=== PATIENT | male | born 1965 | race Caucasian/White ===

== ENCOUNTER 2018-07-20 00:48 | Inpatient (IN) | payer BC ==
[2018-07-20] MEDS ORDERED: NS 0.9% 1000 ML* 1,000 ML IV ONE (00:49)
--- NOTE | 2018-07-20 00:58 | HP ---
H&P (Free Text) History and Physical: PCP: Marielos Baires NP Date/Time: 07/20/2018 005 CC: dizziness, slurred speech, R facial droop HPI: Mr Salcedo is a 53YO male HX HTN who was at work when he experienced the sudden onset of dizziness associated with slurred speech and R facial droop at 2200. 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 He denies headache, change in vision, upper or lower extremity W/N/T, difficulty swallowing, chest pain, SOB, N/V/D, F/C, sweats, or other issues. He denies HX of similar. PMedHx HTN Ambulatory Orders Nursing to reconcile. Cephalexin CAP* [Keflex 500 CAP*] 04/15/13 Ibuprofen TAB* [Advil TAB*] 04/15/13 Allergies No Known Allergies Allergy (Verified 04/15/13 12:33) PSurgHx "twisted large intestine" requiring small segment colectomy L inguinal hernia repair SocHx: 1PPD cigarettes with ~30PYHX, <1 alcoholic drink weekly, no recreational drugs; works in the [employer]; lives with his long- term girlfriend, 1 step-daughter; full code status FamHx: Mother passed at 67 2nd COPD. Father passed in his 60s 2nd colon CA w/ a HX CAD onset in his 50s. Sister has had a CABG. One of his 3 brothers has HLD. ROS: as above, otherwise reviewed and all were negative vitals: Vital Signs Temp 37.2 C 07/20/18 01:04 Pulse 92 07/20/18 01:04 Resp 20 07/20/18 01:04 BP 158/109 07/20/18 01:04 Pulse Ox 95 07/20/18 01:04 Intake & Output 07/19/18 07/19/18 07/20/18 11:59 23:59 11:59 Weight 63.503 kg Constitutional: NAD, normally developed, thin white male HEENM: atraumatic; sclera/conjunctiva: anicteric/clear; hearing: clinically intact; oropharynx: clear, mucosa tacky Neck: soft tissue: non-tender, no nuchal rigidity; thyroid: normal Pulmonary: mildly diminished bilaterally, fair to good aeration, no accessory muscle use CV: RR/RR, normal S1S2, no carotid bruit, no jugular venous distention, 1+ B DP/ PT, no edema Abdominal: soft, non-distended, non-tender, no rebound/guarding/rigidity, normoactive bowel sounds, no hepatosplenomegaly or masses, no costovertebral angle tenderness Musculoskeletal: general: grossly intact, non-tender Integumental: normal appearance and texture of exposed skin Neurological cranial nerves II: intact visual quadrants x8 III/IV/: intact light reflex, EOMI/PERRLA, intact convergence & accommodation V: intact corneal reflex, intact facial sensation, intact mastication VII: mild R facial droop, intact eye clench VIII: hearing clinically intact IX/X: symmetric palatal motion, no dysarthria XII: midline tongue protrusion, thick tongued vocal articulation motor: R-handed LUE: 4+/5 proximally, distally, & 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 strength RUE: 4+/5 proximally, distally, & 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 strength LLE: 4+/5 proximally & distally RLE: 4+/5 proximally & distally coordination finger/nose: symmetric, mildly slowed heal/person: intact, symmetric dysdiadochokinesia: globally slowed, symmetric sensory crude touch: intact globally DTRs biceps: 1+ B triceps: 1+ B brachioradialis: 2+ B patellar: 2+ brisk R, 1+ L Achilles: 1+ B Babinski: downgoing B Psychiatric orientation: AA&O to PPS affect: calm mood: cooperative eye contact: fair content: reliable responses: timely insight: fair to good Testing: Lab Results 07/20/18 07/20/18 07/20/18 Range/Units 01:17 01:17 01:17 WBC 11.3 H (3.5-10.8) 10^3/ul RBC 4.55 (4.00-5.40) 10^6/ul Hgb 14.2 (14.0-18.0) g/dl Hct 43 (42-52) % MCV 94 (80-94) fL MCH 31 (27-31) pg MCHC 33 (31-36) g/dl RDW 14 (10.5-15) % Plt Count 266 (150-450) 10^3/ul MPV 8.5 (7.4-10.4) um3 Neut % (Auto) 81.4 (38-83) % Lymph % (Auto) 12.8 L (25-47) % [facility] % (Auto) 4.4 (0-7) % Eos % (Auto) 0.7 (0-6) % Baso % (Auto) 0.7 (0-2) % Absolute Neuts (auto) 9.2 H (1.5-7.7) 10^3/ul Absolute Lymphs (auto) 1.4 (1.0-4.8) 10^3/ul Absolute Monos (auto) 0.5 (0-0.8) 10^3/ul Absolute Eos (auto) 0.1 (0-0.6) 10^3/ul Absolute Basos (auto) 0.1 (0-0.2) 10^3/ul Absolute Nucleated RBC 0 10^3/ul Nucleated RBC % 0 INR (Anticoag Therapy) 0.94 (0.77-1.02) APTT 31.1 (26.0-36.3) seconds Sodium 134 L (135-145) mmol/L Potassium 4.2 (3.5-5.0) mmol/L Chloride 100 L (101-111) mmol/L Carbon Dioxide 27 (22-32) mmol/L Anion Gap 7 (2-11) mmol/L BUN 26 H (6-24) mg/dL Creatinine 0.83 (0.67-1.17) mg/dL Est GFR ( Amer) 116.8 (>60) Est GFR (Non-Af Amer) 96.5 (>60) BUN/Creatinine Ratio 31.3 H (8-20) Glucose 116 H (70-100) mg/dL Lactic Acid (0.5-2.0) mmol/L Calcium 9.5 (8.6-10.3) mg/dL Total Bilirubin 0.30 (0.2-1.0) mg/dL AST 14 (13-39) U/L ALT 13 (7-52) U/L Alkaline Phosphatase 80 (34-104) U/L Troponin I 0.00 (<0.04) ng/mL Total Protein 7.1 (6.4-8.9) g/dL Albumin 4.2 (3.2-5.2) g/dL Globulin 2.9 (2-4) g/dL Albumin/Globulin Ratio 1.4 (1-3) Triglycerides 117 mg/dL Cholesterol 168 mg/dL LDL Cholesterol 90 mg/dL HDL Cholesterol 54.7 mg/dL 07/20/18 Range/Units 01:17 WBC (3.5-10.8) 10^3/ul RBC (4.00-5.40) 10^6/ul Hgb (14.0-18.0) g/dl Hct (42-52) % MCV (80-94) fL MCH (27-31) pg MCHC (31-36) g/dl RDW (10.5-15) % Plt Count (150-450) 10^3/ul MPV (7.4-10.4) um3 Neut % (Auto) (38-83) % Lymph % (Auto) (25-47) % [facility] % (Auto) (0-7) % Eos % (Auto) (0-6) % Baso % (Auto) (0-2) % Absolute Neuts (auto) (1.5-7.7) 10^3/ul Absolute Lymphs (auto) (1.0-4.8) 10^3/ul Absolute Monos (auto) (0-0.8) 10^3/ul Absolute Eos (auto) (0-0.6) 10^3/ul Absolute Basos (auto) (0-0.2) 10^3/ul Absolute Nucleated RBC 10^3/ul Nucleated RBC % INR (Anticoag Therapy) (0.77-1.02) APTT (26.0-36.3) seconds Sodium (135-145) mmol/L Potassium (3.5-5.0) mmol/L Chloride (101-111) mmol/L Carbon Dioxide (22-32) mmol/L Anion Gap (2-11) mmol/L BUN (6-24) mg/dL Creatinine (0.67-1.17) mg/dL Est GFR ( Amer) (>60) Est GFR (Non-Af Amer) (>60) BUN/Creatinine Ratio (8-20) Glucose (70-100) mg/dL Lactic Acid 0.5 (0.5-2.0) mmol/L Calcium (8.6-10.3) mg/dL Total Bilirubin (0.2-1.0) mg/dL AST (13-39) U/L ALT (7-52) U/L Alkaline Phosphatase (34-104) U/L Troponin I (<0.04) ng/mL Total Protein (6.4-8.9) g/dL Albumin (3.2-5.2) g/dL Globulin (2-4) g/dL Albumin/Globulin Ratio (1-3) Triglycerides mg/dL Cholesterol mg/dL LDL Cholesterol mg/dL HDL Cholesterol mg/dL ECG, personally reviewed: NSR rate 89, no ischemia CXR, personally reviewed: no acute process CT brain WO, personally reviewed: IMPRESSION: No acute intracranial abnormality. Impression: 53YO male HX HTN presenting with light-headedness, slurred speech, & R facial droop concerning for CVA DIAGNOSIS & PLAN Primary L cortical CVA : aspirin : telemetry : neurochecks : supplemental oxygen : MRI brain WO in AM : carotid US in AM : telestroke recommended admission to [facility] for further work up : neurology consult in AM : NPO until swallowing eval passed : supportive care Secondary HTN : permissive HTN limited to systolic 180, PRN hydralazine Admission Rational: observation for CVA/TIA work up DVTp: SCDs Code Status: full HCP: female friend, Melanie Grier Critical Care time: 70minutes with >50% spent at the bedside obtaining a history , performing the examination, advising of diagnosis & treatment options along with risks/benefits/reasoning; remainder spent discussing with ER MD, reviewing labs and radiology exams, performing documentation
--- NOTE | 2018-07-20 01:00 | ED ---
Neurological HPI - HPI Summary HPI Summary: A 53 y/o M JAI presents to ED with c/o R-sided facial droop and slurred speech onset 2299. Pt was at work when he began to feel dizzy and lightheaded. He noticed his speech was also slurred. Per EMS, pt also has R-sided facial droop. Pt states he felt fine earlier today at 2000. ED provider evaluated patient immediately upon arrival at charge desk. - History of Current Complaint Stated Complaint: CODE RODRIGUEZ Hx Obtained From: Patient, EMS Onset/Duration: Sudden Onset, Started hours ago - 2299, Still Present Timing: Constant Onset Severity: Moderate Current Severity: Moderate Character: Lightheaded, Dizzy, Paralysis - R-sided face, Impaired Speech Associated Signs and Symptoms: Positive: Dizziness, Impaired Speech, Lightheadness. Negative: Headache - Allergy/Home Medications Allergies/Adverse Reactions: Allergies Allergy/AdvReac Type Severity Reaction Status Date / Time No Known Allergies Allergy Verified 04/15/13 12:33 PMH/Surg Hx/FS Hx/Imm Hx Previously Healthy: No Cardiovascular History: Reports: Hx Hypertension GI History: Reports: Hx Hiatal Hernia Opthamlomology History: Denies: Hx Legally Blind EENT History: Denies: Hx Deafness - Surgical History Surgery Procedure, Year, and Place: HERNIA SURGERY - Family History Known Family History: Positive: Cardiac Disease Family History: CA, COPD - Social History Occupation: Employed Full-time Lives: Alone Substance Use Type: Reports: None Hx Tobacco Use: Yes Review of Systems Neurological: Other - pos: R-sided facial droop, dizziness, lightheadedness Positive: Slurred Speech. Negative: Headache All Other Systems Reviewed And Are Negative: Yes Physical Exam - Summary Physical Exam Summary: Appearance: Well-appearing, Well-nourished, lying in bed comfortably Skin: Warm, dry, no obvious rash Eyes: sclera anicteric, no conjunctival pallor ENT: mucous membranes moist, pharynx appears normal Neck: Supple, nontender Respiratory: Clear to auscultation, no signs of respiratory distress Cardiovascular: Normal S1, S2. No murmurs. Normal distal pulses in tibial and radial bilaterally. Abdomen: Soft, nontender, normal active bowel sounds present Musculoskeletal: Normal, Strength/ROM Intact Neurological: A&Ox3, awake and alert. NIH stroke scale 3 due to R-sided facial droop and mild dysarthria. Psychiatric: affect is normal, does not appear anxious or depressed Triage Information Reviewed: Yes Vital Signs Reviewed: Yes - [place] Coma Scale Best Eye Response: 4 - Spontaneous Best Motor Response: 6 - Obeys Commands Best Verbal Response: 5 - Oriented Coma Scale Total: 15 Diagnostics - Laboratory Result Diagrams: 07/20/18 01:17 07/20/18 01:17 Lab Statement: Any lab studies that have been ordered have been reviewed, and results considered in the medical decision making process. - Radiology CXR Xray Interpretation: No Acute Changes Radiology Interpretation Completed By: ED Physician - CT BRAIN CT Interpretation: No Acute Changes - IMPRESSION: No acute intracranial abnormality. ED provider has reviewed this report. CT Interpretation Completed By: Radiologist - EKG 0103 Cardiac Rate: NL - 89 bpm EKG Rhythm: Sinus Rhythm NIH Scale - NIH Scale Level of Consciousness: Alert/Keenly Responsive Ask Patient the Month and His/Her Age: Both Correct Ask Pt to Open/Close Eyes and Developmental Education Instructor/Release Non-Paretic Hand: Both Correctly Best Gaze (Only Horizontal Eye Movement): Normal Visual Field Testing: No Visual Loss Facial Paresis-Pt to Smile & Close Eyes or Grimace Symmetry: Partial Paralysis Motor Function - Right Arm: No Drift-Holds 10 Seconds Motor Function - Left Arm: No Drift-Holds 10 Seconds Motor Function - Right Leg: No Drift-Holds 10 Seconds Motor Function - Left Leg: No Drift-Holds 10 Seconds Limb Ataxia-Must be out of Proportion to Weakness Present: Absent Sensory (Use Pinprick to Test Arms/Legs/Trunk/Face): Normal Best Language (Describe Picture, Name Items): No Aphasia Dysarthria (Read Several Words): Slurs Some Words Extinction and Inattention: No Abnormality Total Score: 3 Course/Dx - Course Course Of Treatment: Ptis a 53 y/o M BIBA for possible stroke onset 2299. Pt presents with R-sided facial droop, dysarthria. Denies MCINTOSH. Brain CT is unremarkable. Pt is improved upon re-eval. Given very low stroke score and improving symptoms, it was felt that TPA and certainly consideration for mechanical reperfusion were not indicated. This opinion was shared by the consulting neurologist. Consulted with Dr. Marinelli, telestroke, who recommends admission to [facility], does not recommend TPA. Discussed case with Dr. Chaudhari, hospitalist, who will admit pt. Critical care time: 25 minutes. - Diagnoses Provider Diagnoses: CVA (cerebral vascular accident) During the Visit The Following Alert/Code Occurred: Code Kaur - 0041 - Physician Notifications Discussed Care Of Patient With: Shan Lopez - neuro Time Discussed With Above Provider: 02:01 Instructed by Provider To: Other - Recommends calling [facility] and consulting their neuro Discharge - Sign-Out/Discharge Documenting (check all that apply): Patient Departure - ADM - Discharge Plan Condition: Stable Disposition: ADMITTED TO [facility] - Billing Disposition and Condition Condition: STABLE Disposition: Admitted to [facility] - Attestation Statements Document Initiated by Scribe: Yes Documenting Scribe: Lianna Acharya Provider For Whom Scribe is Documenting (Include Credential): Dr. Jd Flood MD Scribe Attestation: Lianna Mcneill, scribed for Dr. Jd Flood MD on 07/20/18 at 0640. Scribe Documentation Reviewed: Yes Provider Attestation: The documentation as recorded by the scribe, Lianna Acharya accurately reflects the service I personally performed and the decisions made by me, Dr. Jd Flood MD Consult Consult: 0222: Consult with Dr. Marinelli Weston telestroke Recommends admission here, no TPA. 0224: Consult with Dr. Chaudhari, hospitalist Will admit pt.
--- NOTE | 2018-07-20 01:06 | RAD ---
EXAM: CT Head Without Intravenous Contrast EXAM DATE/TIME: 07/20/2018 12:56 AM CLINICAL HISTORY: 53 years old, male; Signs and symptoms; Speech disturbance; Slurred speech; Additional info: Neurological changes/code carroll TECHNIQUE: Axial computed tomography images of the head/brain without intravenous contrast. All CT scans at this facility use at least one of these dose optimization techniques: automated exposure control; mA and/or kV adjustment per patient size (includes targeted exams where dose is matched to clinical indication); or iterative reconstruction. COMPARISON: No relevant prior studies available. FINDINGS: Brain: Unremarkable. No hemorrhage. No significant white matter disease. No edema. Ventricles: Unremarkable. No ventriculomegaly. Bones/joints: Unremarkable. No acute fracture. Soft tissues: Unremarkable. Sinuses: Unremarkable as visualized. No acute sinusitis. Mastoid air cells: Unremarkable as visualized. No mastoid effusion. IMPRESSION: No acute intracranial abnormality.
[2018-07-20 01:29] LABS: ABS Basophils 0.1 10^3/ul (0-0.2); ABS Eosinophils 0.1 10^3/ul (0-0.6); ABS Lymphocytes 1.4 10^3/ul (1.0-4.8); ABS Monocytes 0.5 10^3/ul (0-0.8); ABS Neutrophils 9.2 10^3/ul (1.5-7.7); ABS Nucleated RBC 0 10^3/ul; Eosinophil % 0.7 % (0-6); Hematocrit 43 % (42-52); Hemoglobin 14.2 g/dl (14.0-18.0); Lymphocyte % 12.8 % (25-47); Mean Corpuscular HGB Conc 33 g/dl (31-36); Mean Corpuscular Hemoglobin 31 pg (27-31); Mean Corpuscular Volume 94 fL (80-94); Mean Platelet Volume 8.5 um3 (7.4-10.4); Nucleated Red Blood Cells % 0; Platelet Count 266 10^3/ul (150-450); Red Blood Count 4.55 10^6/ul (4.00-5.40); Red Cell Distribution Width 14 % (10.5-15); White Blood Count 11.3 10^3/ul (3.5-10.8)
[2018-07-20 01:46] LABS: EGFR Non-African American 96.5 (>60)
[2018-07-20] MEDS ORDERED: Acetaminophen TAB* 325 MG PO PRN (01:56)
[2018-07-20 02:14] LABS: INR 0.94 (0.77-1.02)
[2018-07-20] MEDS ORDERED: Melatonin 3 MG TAB PO PRN (02:26)
[2018-07-20] MEDS ORDERED: hydrALAZINE IV* 20 MG/ML VIAL IV PRN (02:26)
[2018-07-20] MEDS ORDERED: Aspirin 81 mg CHEW TAB* 81 MG TAB.CHEW PO ONE (02:26)
[2018-07-20] MEDS ORDERED: Ondansetron ODT TAB* 4 MG PO PRN (02:26)
[2018-07-20] MEDS: NS 0.9% 1000 ML* 1,000 ML IV SCH ×2 (04:33→19:11)
[2018-07-20] MEDS ORDERED: Omeprazole CAP* 20 MG PO SCH (06:00)
--- NOTE | 2018-07-20 08:11 | RAD ---
Indication: Code carroll, neurologic changes. Single frontal view of the chest performed at 0110 hours was reviewed. No prior study is available. No mediastinal shift is noted. Heart is of normal size and configuration. Lung scott appear clear. Lung scott appear hyperinflated. IMPRESSION: NO ACTIVE CARDIOPULMONARY DISEASE IS NOTED. R0
[2018-07-20] MEDS: Docusate CAP* 100 MG PO SCH ×2 (08:18→19:23)
--- NOTE | 2018-07-20 09:22 | RAD ---
INDICATION: TIA CVA workup. COMPARISON: No relevant prior exams available on the [facility] PACS for comparison. TECHNIQUE: Bilateral carotid duplex scan. Stenosis estimations reflect velocity criteria that have been correlated to angiographic stenosis calculations based on distal internal carotid diameter. REPORT: RIGHT ICA: 39 cm/s peak systolic 15 cm/s end diastolic CCA: 53 cm/s peak systolic ICA/CCA peak systolic ratio: 0.73 The right common carotid artery and internal carotid artery are without evidence for significant atherosclerotic disease. Normal spectral wave forms are present throughout. Antegrade flow in the right vertebral artery. LEFT ICA: 48 cm/s peak systolic 20 cm/s end diastolic CCA: 68 cm/s peak systolic ICA/CCA peak systolic ratio: 0.70 The left common carotid artery and internal carotid artery are without evidence for significant atherosclerotic disease. Normal spectral wave forms are present throughout. Antegrade flow in the left vertebral artery. IMPRESSION: #. No sonographic evidence for hemodynamic significant carotid stenosis. CPT II Codes: 3100F
[2018-07-20] MEDS ORDERED: Mouth Piece, Nicotine* 1 EACH CARTRIDGE INH PRN (09:53)
[2018-07-20] MEDS ORDERED: Nicotine Inhaler* 10 MG AMP INH PRN (09:53)
--- NOTE | 2018-07-20 09:59 | PN ---
Subjective Date of Service: 07/20/18 Interval History: No N/V, LH, headache, SOB, CP Tearful when discussing potential CVA No events on tele Objective Active Medications: Acetaminophen (Tylenol Tab*) 650 mg PO Q6H PRN PRN Reason: FEVER/PAIN Aspirin (Aspirin Ec Tab*) 162 mg PO DAILY [facility] Atorvastatin Calcium (Lipitor*) 40 mg PO 1700 [facility] Device (Nicotine Mouth Piece*) 1 each INH .USE WITH NICOTROL PRN PRN Reason: CRAVING Docusate Sodium (Colace Cap*) 200 mg PO BID [facility] Last Admin: 07/20/18 08:18 Dose: Not Given Hydralazine HCl (Apresoline Iv*) 10 mg IV Q4H PRN PRN Reason: Systolic >180 Sodium Chloride (Ns 0.9% 1000 Ml*) 1,000 mls @ 75 mls/hr IV PER RATE [facility] Last Admin: 07/20/18 04:33 Dose: 75 mls/hr Melatonin (Melatonin) 3 mg PO BEDTIME PRN; Protocol PRN Reason: Sleep Nicotine (Nicotine Inhaler*) 10 mg INH Q2H PRN PRN Reason: CRAVING Omeprazole (Prilosec Cap*) 20 mg PO DAILY@0600 [facility] Last Admin: 07/20/18 05:34 Dose: 20 mg Ondansetron HCl (Zofran Odt Tab*) 4 mg PO Q6H PRN PRN Reason: n/v Vital Signs - 8 hr 07/20/18 07/20/18 07/20/18 02:00 02:06 02:36 Temperature Pulse Rate 81 83 73 Respiratory 19 20 14 Rate Blood Pressure 172/110 151/95 (mmHg) O2 Sat by Pulse 93 94 93 Oximetry 07/20/18 07/20/18 07/20/18 03:00 03:06 03:36 Temperature Pulse Rate 77 79 80 Respiratory 21 22 18 Rate Blood Pressure 158/94 113/79 (mmHg) O2 Sat by Pulse 93 93 92 Oximetry 07/20/18 07/20/18 07/20/18 03:40 03:59 07:41 Temperature 97.6 F 98.5 F 97.6 F Pulse Rate 71 76 63 Respiratory 16 15 Rate Blood Pressure 145/98 151/95 151/96 (mmHg) O2 Sat by Pulse 98 95 97 Oximetry 07/20/18 08:00 Temperature Pulse Rate Respiratory Rate Blood Pressure (mmHg) O2 Sat by Pulse 97 Oximetry Oxygen Devices in Use Now: None Appearance: thin, NAD Eyes: No Scleral Icterus, PERRLA Ears/Nose/Mouth/Throat: NL Teeth, Lips, Gums, Clear Oropharnyx Neck: NL Appearance and Movements; NL JVP Respiratory: Symmetrical Chest Expansion and Respiratory Effort, Clear to Auscultation, - - decreased BS Cardiovascular: RRR Abdominal: NL Sounds; No Tenderness; No Distention, No Hepatosplenomegaly Extremities: No Edema Skin: No Rash or Ulcers Neurological: Alert and Oriented x 3, - - right facial droop, no pronator drift , peripheral vision intact, strength 5/5 throughout Result Diagrams: 07/20/18 01:17 07/20/18 01:17 Assess/Plan/Problems-Billing Assessment: 53 yo M h/o HTN, tobacco dependence p/w right facial droop - Patient Problems (1) Right sided cerebral hemisphere cerebrovascular accident (CVA) Comment: Slurred speech resolved, right droop remains MRI pending carotiod wnl TTE pending start atorvastatin c/w ASA neuro consult (2) Hypertension Comment: dxs last week on routine phsycial on no meds permissive HTN (3) Tobacco abuse Comment: nicotine inhaler Status and Disposition: inpatient
--- NOTE | 2018-07-20 10:38 | ECHO ---
Patient: JAMES REBOLLEDO [facility] Rec#: [id number] : 1965 Date: 07/20/2018 Age: 53y Height: 178 cm / 70.1 in Weight: 64 kg / 141.1 lbs Sex: M BSA: 1.8 Room#: [facility] Admit Date#: 07/20/2018 Type: Inpatient Referring: Jose Chaudhari MD Reading: Casper Zaidi MD Drill Operator Automatic: Carmen Williamson,JOSECS,RDMS CC: Cele Baires NP Transthoracic Echocardiogram Indication: CVA BP: 151/95 HR: 60 Rhythm: NSR Findings History: HTN Technical Comments: The study quality is fair. The study is technically limited due to patient body habitus. Left Ventricle: The left ventricular chamber size is normal. Mild concentric left ventricular hypertrophy is observed. Global left ventricular wall motion and contractility are within normal limits. There is normal left ventricular systolic function. The estimated ejection fraction is 55-60%. There is no consistent Doppler evidence of clinically significant diastolic dysfunction. Left Atrium: The left atrial chamber size is normal. Right Ventricle: The right ventricular chamber size and systolic function are within normal limits. Right Atrium: The right atrium is mildly dilated. Aortic Valve: The aortic valve is trileaflet. Systolic excursion of the aortic valve is normal. There is no evidence of aortic regurgitation. There is no evidence of aortic stenosis. Mitral Valve: The mitral valve leaflets appear normal. There is no evidence of mitral regurgitation. There is no evidence of mitral stenosis. Tricuspid Valve: The tricuspid valve leaflets are normal. There is no evidence of tricuspid valve regurgitation. Unable to estimate the right ventricular systolic pressure. Pulmonic Valve: The pulmonic valve appears normal. There is no evidence of pulmonic regurgitation. Pericardium: There is no significant pericardial effusion. Aorta: The ascending aorta is not well visualized. The aortic arch is not well visualized. The aortic root is normal in size. Pulmonary Artery: The main pulmonary artery is not well visualized. Venous: The inferior vena cava appears normal in size. There is a greater than 50% respiratory change in the inferior vena cava dimension. Summary: There was not any prior study for comparison. Conclusions Mild concentric left ventricular hypertrophy is observed. Global left ventricular wall motion and contractility are within normal limits. The estimated ejection fraction is 55-60%. There is no evidence of aortic stenosis. There is no evidence of mitral regurgitation. There is no evidence of tricuspid valve regurgitation. Unable to estimate the right ventricular systolic pressure. There is no significant pericardial effusion. Measurements Name Value Normal Range RVIDd (AP) 2D 2.5 cm (0.9 - 2.6) RVDdMajor (2D) 2.9 cm (2.2 - 4.4) RAd ISD 4CH 6.7 cm (3.4 - 4.9) RA (A4C)W 3.4 cm (2.9 - 4.6) IVSd (2D) 0.8 cm (0.6 - 1) LVPWd (2D) 1.1 cm (0.6 - 1) LVIDd (2D) 4.3 cm (3.6 - 5.4) LVIDs (2D) 3.3 cm - LV FS (2D) 22.5 % (25 - 45) Aortic Annulus 2.1 cm (1.4 - 2.6) Ao root diameter (2D) 3 cm (2.1 - 3.5) LA dimension (AP) 2D 2.6 cm (2.3 - 3.8) LAd ISD 4CH 4.1 cm (2.9 - 5.3) LA ISD 4CH W 2.8 cm (2.5 - 4.5) Name Value Normal Range MV E-wave Vmax 0.6 m/sec - MV deceleration time 240 msec - MV A-wave Vmax 0.4 m/sec - MV E:A ratio 1.5 ratio - LV septal e' Vmax 0.09 m/sec - LV lateral e' Vmax 0.12 m/sec - LV E:e' septal ratio 6 ratio - LV E:e' lateral ratio 5 ratio - Name Value Normal Range AV Vmax 1.1 m/sec - AV VTI 22 cm - AV peak gradient 5 mmHg - AV mean gradient 3 mmHg - LVOT Vmax 0.9 m/sec - LVOT VTI 18 cm - LVOT peak gradient 3.2 mmHg - LVOT mean gradient 2 mmHg - MARTHA Vmax 0.7 m/sec - Name Value Normal Range RAP 8 mmHg - IVC diameter 2 cm - Name Value Normal Range PV Vmax 0.6 m/sec - PV peak gradient 1.4 mmHg -
--- NOTE | 2018-07-20 13:14 | RAD ---
HISTORY: Weakness and slurred speech COMPARISONS: Same day carotid ultrasound does not show any evidence of high-grade stenosis and CT of the brain July 20, 2018 at did not show any acute abnormalities. TECHNIQUE: The following sequences were obtained of the head: Sagittal T1-weighted images, axial T2-weighted images, axial FLAIR images, axial susceptibility weighted images, axial T1-weighted images. Additionally, axial diffusion-weighted images were obtained with calculated apparent diffusion coefficients.. FINDINGS: HEMORRHAGE/INFARCT: There is no hemorrhage or acute infarct. MASSES/SHIFT: There is no mass or shift. EXTRA-AXIAL SPACES/MENINGES: There are no extra-axial fluid collections. SULCI AND VENTRICLES: The sulci and ventricles are normal in size and position for the patient's stated age. CEREBRUM: At the posterior limb of the right internal capsule there is a 7 x 13 mm focus of high signal intensity on diffusion-weighted imaging (image 15) corresponding to mild hyperintensity on T2 FLAIR imaging consistent with an acute focal infarction. Elsewhere the carroll-white matter differentiation is well maintained. There is no mass, mass effect or midline shift. BRAINSTEM: There are no focal parenchymal abnormalities. CEREBELLUM: There are no focal parenchymal abnormalities. The cerebellar tonsils are normal in size and position. SELLA: The sella is normal. PINEAL: The pineal region is clear. CP ANGLE/TEMPORAL BONES: The labyrinthine structures are grossly normal. VESSELS: Normal flow-voids are noted within the visualized vertebral vasculature. DIFFUSION ABNORMALITIES: There are no diffusion abnormalities. PARANASAL SINUSES/MASTOIDS: The paranasal sinuses are clear. ORBITS: The orbits are unremarkable. BONES AND SOFT TISSUE: No bone or soft tissue abnormalities are noted. IMPRESSION: MRI FINDINGS ARE CONSISTENT WITH AN ACUTE FOCAL INFARCTION AT THE POSTERIOR LIMB OF THE RIGHT INTERNAL CAPSULE.
[2018-07-20 14:00] LABS: Urine Appearance Clear; Urine Blood Negative (Negative); Urine Color Straw; Urine Ketones Negative (Negative); Urine Protein Negative (Negative); Urine Specific Gravity 1.008 (1.010-1.030); Urine Urobilinogen Negative (Negative)
[2018-07-20] MEDS: Clopidogrel TAB* 75 MG PO SCH (15:39)
[2018-07-20] MEDS: Atorvastatin* 40 MG TAB PO SCH (15:39)
[2018-07-20] MEDS: Nicotine PATCH 21 MG/24 HR* PATCH TRANSDERM SCH (17:32)
--- NOTE | 2018-07-20 19:01 | CONS ---
NEUROLOGY CONSULTATION: DATE OF CONSULT: 07/20/18 LOCATION: He is an inpatient in room 444. REFERRING PROVIDER: Dr. Muñoz. CHIEF COMPLAINT: Slurred speech, facial weakness. 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 when he developed slurred speech. He was at work at that time. He had no problems walking and no sense of numbness or change in vision. He presented to the emergency room within an hour of onset of symptoms. He was evaluated by Dr. Flood. He had slurred speech and left facial weakness. The rest of his exam was unremarkable. He consulted with Telestroke with Dr. Marinelli and they decided his deficits were improving and did not administer t-PA. He was admitted. Today at 1430 hours, he still notes some slurred speech. He denies any numbness , change in vision, weakness in his limbs, or difficulty walking. There was no headache. He was able to eat and no problems swallowing. He does not see physicians unless he is sick. He was not on any medications when he came in. He is a smoker. He does not know what his blood pressure normally is. He has not had a blood test before he came in for probably several years. PAST MEDICAL HISTORY: Notable for hernia surgery. He has a longstanding strabismus. MEDICATIONS: He is not on any medications as an outpatient. Medications are reviewed and since he has come into the hospital, he has been started on: 1. Aspirin 162 mg p.o. q. day. 2. Atorvastatin 40 mg p.o. q. day. 3. Nicotrol p.r.n. craving. 4. Colace 200 mg p.o. b.i.d. 5. Hydralazine 10 mg IV q.4 hours as needed for systolic greater than 180. 6. Zofran p.r.n. nausea. ALLERGIES: He does not have any drug allergies. FAMILY HISTORY: Notable for multiple family members with hypertension, hyperlipidemia, and coronary artery disease. REVIEW OF SYSTEMS: Negative for fevers, falls, headaches, change in weight. No history of diabetes, heart disease, hypertension, GI, , psychiatric, rheumatological, endocrine disorders. Again, he does not seek routine medical care. PHYSICAL EXAM: He is well nourished and well hydrated. He has been afebrile throughout his hospital stay. Blood pressure most recently is 153/95, which is what it has been generally running since he has been here. Heart rate is in the 80s and regular, respiratory rate is 20, and oxygen saturations 94% on room air. Heart is in a regular rhythm without murmurs. Carotid pulses are symmetrical and there are no cervical bruits. Lungs are clear anterolaterally. Neurological Exam: Pupils react equally from 4 down to 2.5 mm. He has limited range of motion of the right eye with nearly absent upgaze and exotropia on downgaze. Eye movements in the left eye are full. There is no nystagmus. Funduscopic exam is unremarkable. Visual scott are full to confrontation. Facial musculature is notable for a central pattern left facial weakness. Facial sensation is intact and symmetric. Palate and tongue are normal, tongue protrudes in the midline, palate rises symmetrically. There is a mild buccal dysarthria. Hearing is intact and neck strength is intact. Motor exam reveals normal tone and strength proximally and distally in upper and lower extremities. There may be very mild left pronator drift. Finger taps are normal in the hands. Rapid alternating movements are normal in the hands as well. Sensory exam is intact and symmetric to light touch and pin in upper and lower extremities. Reflexes are brisk and symmetric. Plantar responses are flexor bilaterally. He is extremely fatigued and it took quite a while to wake him up. Language is fluent. He becomes teary as we discuss his symptoms and stroke. Memory seems intact. I did not attempt to ambulate as he is very tired. DIAGNOSTIC STUDIES/LAB DATA: Includes a chemistry profile on admission, which is notable for nonfasting glucose of 116 and otherwise has an unremarkable chemistry profile. Cholesterol at 1 in the morning is 168, LDL 90. CBC is notable for borderline elevated white blood cell count at 11.3 and is otherwise unremarkable. Urinalysis is unremarkable. INR and PTT are within normal limits. CT of the brain is reviewed and is interpreted as normal. I reviewed the images and I agree. MRI of the brain is reviewed and is interpreted as showing an acute right posterior limb internal capsule infarction. I reviewed the images and I agree as well. Carotid ultrasound study is interpreted as normal. Transthoracic echocardiogram interpreted as normal other than mild diastolic dysfunction. IMPRESSION AND PLAN: Impression is that of a small vessel infraction in the posterior limb of the internal capsule on the right. The rest of his MRI brain looks pretty normal and his carotid ultrasound and echocardiogram are unremarkable. I agree with atorvastatin and aspirin therapy. I would recommend dual antiplatelet therapy for 30 days and then switch him to aspirin monotherapy. I would recommend starting an antihypertensive while he is here in the hospital. I would recommend he remain in the hospital for another night to get at least 24 hours of telemetry. I discussed the diagnosis with Jeremías Salcedo and his girlfriend who is present. I emphasized the importance of quitting smoking to decrease risk of recurrent stroke. I also explained the results of his studies and the recommendations to take aspirin, atorvastatin, and Plavix. He will need outpatient followup to monitor his blood pressure, lipid status, and make sure that he is on aspirin monotherapy by 30 days. I will continue to follow him while he is here in the hospital with you. [id number]/[facility] #: [id number] YVAN
[2018-07-20] MEDS: Nicotine Patch Removal NOTE FOLLOW UP SCH (21:04)
[2018-07-21] MEDS: Clopidogrel TAB* 75 MG PO SCH (07:55)
[2018-07-21] MEDS: Nicotine PATCH 21 MG/24 HR* PATCH TRANSDERM SCH (07:56)
[2018-07-21] MEDS: Docusate CAP* 100 MG PO SCH (08:04)
[2018-07-21] MEDS ORDERED: Aspirin EC TAB* 81 MG TAB.EC PO SCH (09:00)
[2018-07-21] MEDS: NS 0.9% 1000 ML* 1,000 ML IV SCH (09:36)
[2018-07-21] MEDS ORDERED: Hydrochlorothiazide TAB* 25 MG PO SCH (10:00)
[2018-07-21] MEDS: Atorvastatin* 40 MG TAB PO SCH (17:32)
[2018-07-21] MEDS: Nicotine Patch Removal NOTE FOLLOW UP SCH (17:37)
[2018-07-21 17:38] VITALS: BP 157/86
--- NOTE | 2018-07-22 02:10 | DS ---
CC: EVELYN Kennedy * DISCHARGE SUMMARY: DATE OF ADMISSION: 07/20/18 DATE OF DISCHARGE: 07/21/18 PRIMARY CARE PROVIDER: EVELYN Kennedy, in [place]. 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 SECONDARY DIAGNOSES: Include: 1. Hypertension. 2. Hyperlipidemia. 3. Tobacco abuse. MEDICATIONS ON DISCHARGE: Include: 1. Hydrochlorothiazide 12.5 mg daily. 2. Clopidogrel 75 mg daily for 30 days. 3. Atorvastatin 40 mg in the evening. 4. Aspirin 162 mg daily. Please note, the addition of all the above medications, which need careful followup. CONSULTATIONS OBTAINED DURING THE COURSE OF THE HOSPITAL STAY: Neurology. PERTINENT IMAGING STUDIES: Brain MRI. Impression: MRI findings are consistent with an acute focal infarction at the posterior limb of the right internal capsule. Carotid Doppler study. Impression: No sonographic evidence for hemodynamically significant carotid stenosis. Transthoracic echocardiogram. Impression: Mild concentric left ventricular hypertrophy. Global left ventricular wall motion and contractility are within normal limits. An estimated LVEF 55% to 60%. No evidence of , MR, or TR. Telemetry recording over 24 hours, no atrial fibrillation. PERTINENT LABORATORY DATA: Total cholesterol 168, LDL 90, HDL 54.7. 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 He was consulted via Telestroke with Dr. Marinelli and the decision was made not to administer t-PA as the thought was his symptoms were improving. MRI confirmed right-sided cerebral infarct at the posterior limb of the right internal capsule. His residual deficit remained right-sided facial weakness, although his slurred speech had improved by the time of discharge. He was started on dual- antiplatelet therapy with aspirin and Plavix. The Plavix should be discontinued after 30 days. He was started on atorvastatin for hyperlipidemia as well as hydrochlorothiazide at 12.5 mg for hypertension. There were no complications during the course of his hospital stay. Extensive counseling was given to the patient via myself as well as the neurologist regarding tobacco cessation and its importance in the prevention of future strokes. The patient also understood followup with his PCP was important in the next 4 to 7 days. Unfortunately, he did have a visit scheduled for today and I had already spoken to the office who informed him to call and make a followup upon discharge. I feel comfortable that he can perform this duty. At followup, please; 1. Discontinue Plavix after 30 days as indicated above. 2. Titrate blood pressure medications as needed. 3. Follow cholesterol as needed. 4. 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 Reasons to return to the hospital including, but are not limited to recurrent or worsening symptoms including numbness, slurred speech, weakness in any location, bleeding, fall with head strike, nausea, vomiting, lightheadedness, chest pain, shortness of breath, loss of consciousness, inability to obtain or tolerate medications were discussed with the patient at length, he acknowledged understanding. TIME SPENT: Greater than 60 minutes was spent on the discharge of the patient, greater than half was spent [id number] with the patient. [id number]/[facility] #: [id number] YVAN
== END 2018-07-21 17:57 | disposition home or self-care (01) | DRG 45 ==
LOC: ED 00:48 → MEDTELE 00:52 → OBSVTOIN 10:41
PROVIDERS: ADMIT Hospitalist; ATTEND Internal Medicine
DX: I63.8 Other cerebral infarction (principal); R47.81 Slurred speech; R29.810 Facial weakness; I10 Essential (primary) hypertension; E78.5 Hyperlipidemia, unspecified; F17.210 Nicotine dependence, cigarettes, uncomplicated; Z79.1 Long term (current) use of non-steroidal anti-inflammatories (NSAID); Z79.899 Other long term (current) drug therapy; Z82.5 Family history of asthma and other chronic lower respiratory diseases; Z80.0 Family history of malignant neoplasm of digestive organs; Z82.49 Family history of ischemic heart disease and other diseases of the circulatory system
CPT/HCPCS: 36415; 70450; 70551; 71045; 80053; 80061; 81003; 83605; 84484; 85025; 85610; 85730; 93005; 93306; 93880; 99284; 99406; A9270-GY